=== PATIENT | male | born 1960 | race Caucasian/White ===

== ENCOUNTER → 2023-01-30 | Outpatient (CLI) | payer BC ==
[~2023-01-30] MED LIST: DAYPRO600 M1 PO
== END | disposition home or self-care (01) ==
LOC: RAD 11:58
PROVIDERS: ATTEND Urology
DX: N20.0 Calculus of kidney (principal); Z98.890 Other specified postprocedural states

== ENCOUNTER → 2023-02-09 | Outpatient (CLI) | payer BC | END | disposition home or self-care (01) | LOC: CT 14:00 | PROVIDERS: ATTEND Urology | DX: N20.0 Calculus of kidney (principal); N28.89 Other specified disorders of kidney and ureter; N40.0 Benign prostatic hyperplasia without lower urinary tract symptoms; K57.30 Diverticulosis of large intestine without perforation or abscess without bleeding; Z95.828 Presence of other vascular implants and grafts ==